=== PATIENT | male | born 1995 | race Caucasian/White ===

== ENCOUNTER 2020-02-10 13:22 | Emergency (ER) | payer OTHER, SELFPAY ==
--- NOTE | ~2020-02-10 | XR_ITS ---
EXAMINATION: XR foot RT 2V DATE: 02/11/2020 21:48 INDICATION: Right foot pain. TECHNIQUE: 2 views of right foot were obtained. COMPARISON: None. FINDINGS: Bone alignment is normal. No fracture. Joint spaces are well maintained. IMPRESSION: 1. Normal right foot. Reviewed, dictated and finalized at location A. IMPRESSION: 1. Normal right foot.
[2020-02-10 13:28] VITALS: BP 129/74; PULSE 112; RESP 18; TEMP 37.2; O2SAT 98
--- NOTE | 2020-02-10 13:43 | PC.NURSE ---
Note when patient arrived at 1322 to intake, his mother asked if we provide inpatient treatment for alcohol and drug abuse. Explained we do not have an inpatient treatment facility at [facility]. Given [facility] information as well as other resource numbers for treatment facilities. Visitor states I think he needs something immediately . This RN explained that we would be happy to see the patient if there were any medical issues; visitor states oh, yeah, he has a spider bite . Pt registered as normal and taken to ED Rm 9 per database software technician.
[2020-02-10 13:54] LABS: Basophils Absolute Auto 0.1 K/mm3 (0.0-0.1); Eosinophils Absolute Auto 0.1 K/mm3 (0-0.3); Eosinophils Percent Auto 1.4 % (0-4.4); Hematocrit 47.6 % (42.0-52.0); Hemoglobin 16.8 g/dL (14.0-18.0); Lymphocytes Absolute Auto 2.22 K/mm3 (0.9-3.2); Lymphocytes Percent Auto 44.8 % (18.3-44.2); Mean Corpuscular HGB Conc 35.3 g/dl (32-36); Mean Corpuscular Hemoglobin 31.5 pg (26-34); Mean Corpuscular Volume 89.3 fl (80-100); Monocytes Absolute Auto 0.4 K/mm3 (0.1-0.6); Monocytes Percent Auto 8.1 % (2.6-8.5); Neutrophils Absolute Auto 2.2 K/mm3 (1.3-6.7); Neutrophils Percent Auto 44.7 % (45.5-73.1); Platelet Count Result 266 k/mm3 (150-375); Red Blood Count 5.33 M/mm3 (4.6-6.20); Red Cell Distribution Width 11.9 % (11.5-14.5)
[2020-02-10 14:06] LABS: Alanine Aminotransferase 22 U/L (4-50); Alkaline Phosphatase 78 U/L (38-126); Aspartate Amino Transferase 32 U/L (17-59); Bilirubin,Total 0.7 mg/dL (0.2-1.3); Blood Urea Nitrogen 11 mg/dL (9-20); Calcium 9.1 mg/dL (8.4-10.2); Carbon Dioxide 29 mmol/L (22-30); Chloride 103 mmol/L (98-107); Estimated CRCL calculation 96 ml/min; Estimated Glomerular Filt Rate > 60; Glucose 127 mg/dL (75-110); Potassium 3.8 mmol/L (3.4-5.0); Sodium 142 mmol/L (137-145)
--- NOTE | 2020-02-10 14:10 | PC.NURSE ---
APURVA Lewis at bedside for assessment
[2020-02-10 14:25] LABS: Ethanol 307 mg/dL (<10)
[2020-02-10 14:36] LABS: Thyroid Stimulating Hormone 0.775 uIU/mL (0.465-4.680)
--- NOTE | 2020-02-10 15:18 | ED.GENADULT ---
HPI - General Adult General Chief complaint: Unspecified <JACQUELIN Hanks Last Filed: 02/10/20 22:05> Stated complaint: spider bite <JACQUELIN Hanks Last Filed: 02/10/20 22:05> Time Seen by Provider: 02/10/20 13:25 <JACQUELIN Hanks Last Filed: 02/10/20 22:05> Source: patient <JACQUELIN Hanks Last Filed: 02/10/20 22:05> Mode of arrival: ambulatory <JACQUELIN Hanks Last Filed: 02/10/20 22:05> Limitations: no limitations <JACQUELIN Hanks Last Filed: 02/10/20 22:05> History of Present Illness HPI narrative: Patient is a 24-year-old male who presents to emergency department for evaluation of alcohol intoxication noting that he was drinking this morning as well as possible suicidal ideation. Patient has a custody case hearing tomorrow per his daughter. Patient also has been abusing alcohol more recently with history of alcohol abuse. Patient denies self-harm or homicidal ideation. Patient denies any history of suicidal ideation ., Patient presents with his mother. Patient initially noted that he had a spider bite to the right flank which he does have but is healing and was not the true reason for his presentation noting that his thoughts of self-harm were and his alcohol abuse <JACQUELIN Hanks Last Filed: 02/10/20 22:05> Related Data Home medications: Home Medications Medication Instructions Recorded Confirmed No Home Medications 02/10/20 02/10/20 <JACQUELIN Hanks Last Filed: 02/10/20 22:05> Allergies/adverse reactions: Allergies Allergy/AdvReac Type Severity Reaction Status Date / Time No Known Drug Allergies Allergy Mild Verified 02/27/16 21:24 <JACQUELIN Hanks Last Filed: 02/10/20 22:05> Review of Systems Review of Systems: All systems reviewed & are unremarkable except as noted in HPI and below <JACQUELIN Hanks Last Filed: 02/10/20 22:05> [facility] Family History Family History: Family History (Updated 08/26/18 @ 10:27 by DOCTOR UNKNOWN) Grandparent Family history of Parkinson's disease <Eder Sharma PA-C - Last Filed: 02/10/20 22:05> Social History Social History: Social History Smoking status: Never smoker Second hand tobacco smoke exposure: No Alcohol intake: current Substance use: never <Eder Sharma PA-C - Last Filed: 02/10/20 22:05> Exam Narrative: Exam Narrative: GENERAL: Well-appearing, well-nourished, and in no acute distress. HEAD: Normocephalic, atraumatic. EYES: PERRLA and EOMI. ENT: Nares clear, no rhinorrhea or epistaxis. Mucous membranes moist. Oropharynx without tonsillar hypertrophy exudate or other lesions. NECK: Supple. No adenopathy or masses. CHEST: Clear to auscultation. No respiratory distress. No wheezes rales or rhonchi HEART: Regular rate and rhythm. No murmur heard. Normal peripheral pulses. ABDOMEN: Soft, nontender, nondistended EXTREMITIES: Normal range of motion. No edema. SKIN: Warm, dry, no rash. NEURO: No focal deficits. Alert and oriented x3. Cranial nerves II through XII grossly intact PSYCH: Normal mood and affect. <Eder Sharma PA-C - Last Filed: 02/10/20 22:05> Course Reevaluation(s) Reevaluation #1: Patient resting comfortably in the room with an alcohol of 98 at this time will have crisis evaluate the patient here in the near future patient resting doubly in no distress and has remained stable in the emergency department <Eder Sharma PA-C - Last Filed: 02/10/20 22:05> Date: 02/10/20 <Eder Sharma PA-C - Last Filed: 02/10/20 22:05> Time: 22:05 <Eder Sharma PA-C - Last Filed: 02/10/20 22:05> Vital Signs Vital signs: Vital Signs Temperature 37.2 C 02/10/20 13:28 Pulse Rate 112 H 02/10/20 13:28 Respiratory Rate 18 02/10/20 13:28 Blood Pressure 129/74
--- NOTE | 2020-02-10 15:18 | PC.NURSE ---
pt sleeping on cot. sitter at bedside.
--- NOTE | 2020-02-10 16:15 | PC.NURSE ---
pt resting on stretcher, sitter at bedside, no current needs.
[2020-02-10 16:22] LABS: Add Urine Microscopic? YES; Appearance Urine Clear (Clear); Bacteria Urine Trace /hpf; Bilirubin Urine Negative (Negative); Blood Urine 1+ (Negative); Color Urine Yellow (Yellow); Glucose Urine UA Negative (Negative); Ketones Urine Negative (Negative); Leukocyte Esterase Ur Negative LEU/UL (Negative); Nitrate Urine Negative (Negative); Protein Urine 1+ mg/dL (Negative); RBC Urine 0-2 /hpf (0-2); Specific Grav Ur 1.012 (1.001-1.035); Urobilinogen Urine Negative mg/dL (<2.0); WBC Urine 0-3 /hpf
[2020-02-10 16:36] LABS: Amphetamine Screen Urine Negative (Negative); Barbiturate Screen Urine Negative (Negative); Benzodiazepines Screen Urine Negative (Negative); Cannabinoid Screen Urine Negative (Negative); Cocaine Screen Urine Negative (Negative); Methadone Screen Urine Negative (Negative); Opiate Screen Urine Negative (Negative); Phencyclidine Screen Urine Negative (Negative)
--- NOTE | 2020-02-10 17:13 | PC.NURSE ---
pt resting on stretcher, sitter at bedside. no current needs.
--- NOTE | 2020-02-10 18:10 | PC.NURSE ---
pt resting on stretcher, sitter at bedside, no current needs.
--- NOTE | 2020-02-10 19:45 | PC.NURSE ---
pt requesting to leave at this time. ERP notifed.
[2020-02-10 19:46] VITALS: BP 122/87; PULSE 66; RESP 18; TEMP 37.2; O2SAT 97
[2020-02-10] MEDS: LORazepam 1 MG TABLET PO (19:51)
--- NOTE | 2020-02-10 19:56 | PC.NURSE ---
pt resting on stretcher, no current needs. sitter at bedside.
--- NOTE | 2020-02-10 20:59 | PC.NURSE ---
pt resting on stretcher, sitter at bedside.
[2020-02-10] MEDS: NICOTINE (*PBKC) 14 MG PATCH 1 PATCH TRANSDERM (21:26)
--- NOTE | 2020-02-10 21:26 | PC.NURSE ---
RN at bedside, nicotine patch applied to left arm.
[2020-02-10 21:52] LABS: Ethanol 98 mg/dL (<10)
--- NOTE | 2020-02-10 22:06 | PC.NURSE ---
pt resting on stretcher, mother at bedside, updated that pt needs lab redraw for alcohol. Sitter at bedside. No current needs.
--- NOTE | 2020-02-10 23:11 | PC.NURSE ---
rn report given to Loco
[2020-02-10 23:23] LABS: Ethanol 60 mg/dL (<10)
--- NOTE | 2020-02-11 00:31 | PC.NURSE ---
CRISIS CONTACTED AT THIS TIME. STATED SOMEONE WOULD BE OUT SHORTLY TO EVALUATE PATIENT.
--- NOTE | 2020-02-11 02:24 | PC.NURSE ---
pt informed by crisis that he would be placed in psych facility, pt unhappy with this answer and requests to speak with edp. pt states that he has a custody hearing tomorrow for his daughter and cannot miss it. edp to talk with patient.
--- NOTE | 2020-02-11 03:28 | PC.NURSE ---
information faxed to [facility] at this time per emilie from crisis request.
--- NOTE | 2020-02-11 04:44 | PC.NURSE ---
PER [facility] AT [facility] IN [place]- THEY HAVE NO BEDS AVAILABLE AT THIS TIME.
[2020-02-11 06:39] VITALS: BP 115/67; PULSE 65; RESP 19; TEMP 37; O2SAT 100
--- NOTE | 2020-02-11 07:55 | PC.NURSE ---
Care assumed at this time, report given by WILL Adan
[2020-02-11 09:03] VITALS: BP 133/86; PULSE 59; RESP 17; TEMP 36.5; O2SAT 100
[2020-02-11 13:13] VITALS: BP 140/92; PULSE 50; RESP 17; O2SAT 100
[2020-02-11] MEDS: NICOTINE (*PBKC) 14 MG PATCH 1 PATCH TRANSDERM (18:23)
--- NOTE | 2020-02-11 18:24 | PC.NURSE ---
pt requesting med for anxiety. RONI and made aware
[2020-02-11] MEDS: LORazepam 1 MG TABLET PO (18:51)
[2020-02-11] MEDS: IBUPROFEN 600 MG TABLET PO (21:46)
[2020-02-11 22:18] VITALS: BP 122/65; PULSE 62; RESP 16; O2SAT 100
[2020-02-12 00:16] LABS: SARS-CoV-2 RNA PCR Negative
[2020-02-12 06:12] VITALS: BP 147/77; PULSE 64; RESP 17; TEMP 36.5; O2SAT 98
== END 2020-02-12 10:49 | disposition home or self-care (01) ==
PROVIDERS: Emergency Medicine; Emergency Medicine Emergency Medical Services; Emergency Provider Emergency Medicine; PCP Emergency Medicine
DX: F32.9 Major depressive disorder, single episode, unspecified (principal); R45.851 Suicidal ideations; Z11.59 Encounter for screening for other viral diseases; F10.10 Alcohol abuse, uncomplicated; Y90.8 Blood alcohol level of 240 mg/100 ml or more; M79.671 Pain in right foot
CPT/HCPCS: 36415; 73620; 80053; 80307; 81001; 84443; 85025; 87635; 99284; A9270; C9803; U0003